=== PATIENT | female | born 1945 | race Caucasian/White ===

== ENCOUNTER 2018-12-28 08:24 | Emergency (ER) | payer MEDICARE, OTHER ==
[2018-12-28] MEDS: cloNIDine 0.1 MG Tab PO ONE (09:39)
[2018-12-28] MEDS ORDERED: Amoxicillin/Clavulanate K 875-125 MG Tab ONE (09:45)
[2018-12-28] MEDS: cloNIDine 0.1 MG Tab ONE (09:46)
--- NOTE | 2018-12-28 10:14 | EDM.PDOC ---
ED HPI GENERAL MEDICAL PROBLEM - General Chief Complaint: Bite:Animal, Insect Stated Complaint: Scratch wound, Right Hand Time Seen by Provider: 12/28/18 09:00 Source of Information: Reports: Patient History Limitations: Reports: No Limitations - History of Present Illness INITIAL COMMENTS - FREE TEXT/NARRATIVE: According to patient she was picking up her pet cat which was upset from another cat in the house. The cat bite her over the right hand and also scratched her lower lip. Happened just prior to arrival. Has small skin cuts over the right hand and wrist. Pt's last tetanus was in 2018. Pt did washed her hand and here to have it checked. No other complaints. Onset: Today Onset Date: 12/28/18 Duration: Resolved Prior to Arrival Severity: Mild Improves with: Reports: None Worsens with: Reports: None Associated Symptoms: Denies: Confusion, Chest Pain, Cough, Diaphoresis, Fever/ Chills, Headaches, Loss of Appetite, Malaise, Nausea/Vomiting, Rash, Seizure, Shortness of Breath, Syncope, Weakness - Related Data Allergies Allergy/AdvReac Type Severity Reaction Status Date / Time Dye Contrast Allergy Itching Uncoded 12/28/18 09:04 Minocin Allergy Anxiety Uncoded 12/28/18 09:04 Home Meds: Home Meds Lisinopril 10 mg PO BID 12/28/18 [History] Past Medical History HEENT History: Reports: Cataract, Other (See Below) Other HEENT History: wears eyeglasses for reading Cardiovascular History: Reports: Heart Murmur, High Cholesterol, Hypertension Respiratory History: Reports: None Gastrointestinal History: Reports: None Genitourinary History: Reports: None 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: - Past Surgical History HEENT Surgical History: Reports: None Cardiovascular Surgical History: Reports: None GI Surgical History: Reports: None Female Surgical History: Reports: None ED ROS GENERAL - Review of Systems Review Of Systems: See Below Constitutional: Denies: Fever, Chills HEENT: Denies: Rhinitis, Throat Pain, Throat Swelling Respiratory: Denies: Shortness of Breath, Wheezing, Pleuritic Chest Pain, Cough , Sputum Cardiovascular: Denies: Chest Pain, Lightheadedness GI/Abdominal: Denies: Abdominal Pain, Diarrhea, Nausea, Vomiting Skin: Reports: Bruising, Erythema, Wound Neurological: Denies: Confusion, Dizziness, Headache, Numbness, Tingling, Weakness ED EXAM, ANIMAL BITE - Physical Exam Exam: See Below Exam Limited By: No Limitations General Appearance: Alert, WD/WN, No Apparent Distress Eye Exam: Bilateral Eye: EOMI, PERRL Ears: Normal External Exam, Normal Canal, Hearing Grossly Normal, Normal TMs Nose: Normal Inspection, Normal Mucosa, No Blood Throat/Mouth: Normal Inspection, Normal Lips, Normal Teeth, Normal Gums, Normal Oropharynx, Normal Voice, No Airway Compromise Head: Atraumatic, Normocephalic Neck: Normal Inspection, Supple, Non-Tender, Full Range of Motion Respiratory/Chest: No Respiratory Distress, Lungs Clear, Normal Breath Sounds, No Accessory Muscle Use, Chest Non-Tender Cardiovascular: Normal Peripheral Pulses, Regular Rate, Rhythm, No Edema, No Gallop, No JVD, No Murmur, No Rub Extremities: Normal Inspection, Normal Range of Motion, Non-Tender, Normal Capillary Refill, No Pedal Edema Neurological: Alert, Oriented Skin Exam: Normal Color, Other (LOwer lip: there is swelling of the lower lip, but no erythema or skin or mucosal tear noted. No redness. Right hand: pt has multiple abrasions over the dorsum of the hand. All ae hemosttic. Minimal tenderness to touch. Good ROM of the hand and fingers.) Course - Vital Signs Text/Narrative:: Pt apparently has had lower lip bite, which is very superficial and scratches on her right hand for her pet cat just prior to arrival. Mos of the hand abrasions are hemostatic. The wound were cleaned and bacitracin ointment applied. Advised daily ointment application and keep the area clean.Pt is upto date on tetanus. I have empirically started her on Augmentin 875mg twice daily for 5 dys for pasteurella and Bartonella prophylaxis. Also signs and symptoms of cat scratch disease discussed with patient, Chance are low as she has been on prophylactic antibiotics. Also patient BP was 208/113mmhg, asymptomatic,pt has not taken her BP meds and also she has decreased the dose from lisinopril 20mg BID to 10mg BID. She did receive clonidine 0.1mg in the ER, advised to go home and take lisinopril 20mg BID. Advised not to change the dose without discussing with her physician. Last Recorded V/S: Last Vital Signs Temp Pulse Resp BP 208/74 H 03/31/19 09:39 Pulse Ox - Orders/Labs/Meds Labs: Laboratory Tests 12/28/18 Range/Units 09:03 WBC 6.0 (4.0-11.0) K/uL RBC 4.23 (3.80-5.80) M/uL Hgb 13.0 (11.5-16.5) g/dL Hct 39.5 (37.0-47.0) % MCV 93 (76-96) fL MCH 30.7 (27.0-32.0) pg MCHC 32.9 (31.0-35.0) g/dL RDW 13.6 (11.0-16.0) % Plt Count 208 (150-500) K/uL MPV 9.7 (6.0-10.0) fL Neut % (Auto) 57.1 (45.0-70.0) % Lymph % (Auto) 32.9 (20.0-40.0) % [place] % (Auto) 8.2 (3.0-10.0) % Eos % (Auto) 1.5 (1.0-5.0) % Baso % (Auto) 0.3 (0.0-0.5) % Neut # (Auto) 3.40 (2.00-7.50) K/uL Lymph # (Auto) 1.96 (1.50-4.00) K/uL [place] # (Auto) 0.49 (0.20-0.80) K/uL Eos # (Auto) 0.09 (0.04-0.40) K/uL Baso # (Auto) 0.02 (0.02-0.10) K/uL Meds: Medications Discontinued Medications Generic Name Dose Route Start Last Admin Trade Name Freq PRN Reason Stop Dose Admin Clonidine HCl 0.1 mg 12/28/18 09:35 12/28/18 09:39 Catapres PO 12/28/18 09:36 0.1 mg ONETIME ONE Administration Clonidine HCl Confirm 12/28/18 09:46 Catapres Administered 12/28/18 09:47 Dose 0.1 mg .ROUTE .STK-MED ONE Departure - Departure Time of Disposition: 10:15 Disposition: Home, Self-Care 01 Clinical Impression: Cat scratch of hand - Discharge Information *PRESCRIPTION DRUG MONITORING PROGRAM REVIEWED*: Not Applicable *COPY OF PRESCRIPTION DRUG MONITORING REPORT IN PATIENT CARROLL: Not Applicable Instructions: Animal Bite, [id number] Referrals: PCP,None [Primary Care Provider] - Forms: ED Department Discharge Additional Instructions: - Take Augmentin 875 mg/125 mg, one tablet 2 times a day for 5 days, as a prophylaxis. - Watch for any fever, swelling of nodes developing at the neck, and pain. - If those symptoms above develops, come to the clinic and see a provider for further treatment. - Continue taking your home medication. Take Lisinopril 10 mg 2 times daily.Monitor you BP at home. - Problem List & Annotations (1) Cat scratch of hand SNOMED Code(s): 357612633 Code(s): S60.519A - ABRASION OF UNSPECIFIED HAND, INITIAL ENCOUNTER; W55.03XA - SCRATCHED BY CAT, INITIAL ENCOUNTER Status: Acute Current Visit: Yes - Problem List Review Problem List Initiated/Reviewed/Updated: Yes - Assessment/Plan Assessment:: cat scratch on right hand CAt bite superficial over the lower lip Plan: Pt apparently has had lower lip bite, which is very superficial and scratches on her right hand for her pet cat just prior to arrival. Mos of the hand abrasions are hemostatic. The wound were cleaned and bacitracin ointment applied. Advised daily ointment application and keep the area clean.Pt is upto date on tetanus. I have empirically started her on Augmentin 875mg twice daily for 5 dys for pasteurella and Bartonella prophylaxis. Also signs and symptoms of cat scratch disease discussed with patient, Chance are low as she has been on prophylactic antibiotics. Also patient BP was 208/113mmhg, asymptomatic,pt has not taken her BP meds and also she has decreased the dose from lisinopril 20mg BID to 10mg BID. She did receive clonidine 0.1mg in the ER, advised to go home and take lisinopril 20mg BID. Advised not to change the dose without discussing with her physician.
== END 2018-12-28 09:55 | disposition home or self-care (01) ==
LOC: LB.ED 08:24
DX: S00.571A Other superficial bite of lip, initial encounter (principal); S60.511A Abrasion of right hand, initial encounter; I10 Essential (primary) hypertension; Z79.899 Other long term (current) drug therapy; Z88.8 Allergy status to other drugs, medicaments and biological substances; Z91.041 Radiographic dye allergy status; W55.01XA Bitten by cat, initial encounter
CPT/HCPCS: 36415; 85025; 99282; A9270-GY

== ENCOUNTER 2021-08-23 23:35 | Emergency (ER) | payer MEDICARE ==
[2021-08-23] MEDS ORDERED: Ondansetron 4 MG Tab.DIS ONE (23:45)
[2021-08-24] MEDS: Sodium Chloride 0.9% 1,000 ML IV SCH (00:02)
--- NOTE | 2021-08-24 00:32 | EDM.PDOC ---
ED HPI GENERAL MEDICAL PROBLEM - General Chief Complaint: Drug or Alcohol Abuse Stated Complaint: TYLENOL OVERDOSE Time Seen by Provider: 08/24/21 00:00 - History of Present Illness INITIAL COMMENTS - FREE TEXT/NARRATIVE: Pt comes in with her daughter with C/O not feeling well. She accidentally has been taking too much Tylenol. Taking 17 tabs a day for 1 week. She thought they were 100 mg tabs so she took 5- 500 mg tabs TID. This evening she started to feel GI upset and not feel well. Thats when her daughter realized what was happening and brought her in. 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 Left Jaw Pain Score (Numeric/FACES): 2 - Related Data Allergies Allergy/AdvReac Type Severity Reaction Status Date / Time Dye Contrast Allergy Itching Uncoded 08/24/21 00:10 Minocin Allergy Anxiety Uncoded 08/24/21 00:10 Home Meds: Home Meds Lisinopril 10 mg PO BID 12/28/18 [History] amLODIPine Besylate [Norvasc] 5 mg PO DAILY 08/24/21 [History] Past Medical History HEENT History: Reports: Cataract, Other (See Below) Other HEENT History: wears eyeglasses for reading Cardiovascular History: Reports: Heart Murmur, High Cholesterol, Hypertension Respiratory History: Reports: None Gastrointestinal History: Reports: None Genitourinary History: Reports: None 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: Neurological History: Reports: None Endocrine/Metabolic History: Reports: None Hematologic History: Reports: None Dermatologic History: Reports: Other (See Below) Other 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, lateral side - Infectious Disease History Infectious Disease History: Reports: Chicken Pox, Measles, Mumps - Past Surgical History HEENT Surgical History: Reports: None Cardiovascular Surgical History: Reports: None GI Surgical History: Reports: None Female Surgical History: Reports: None Musculoskeletal Surgical History: Reports: None Dermatological Surgical History: Reports: Other (See Below) Social & Family History - Family History Oncologic: Reports: Breast - Caffeine Use Caffeine Use: Reports: None - Recreational Drug Use Recreational Drug Use: No ED ROS GENERAL - Review of Systems Review Of Systems: Comprehensive ROS is negative, except as noted in HPI. GI/Abdominal: Reports: Abdominal Pain, Nausea ED EXAM, GENERAL - Physical Exam Exam: See Below General Appearance: Other (Pt is awake and alert. In no respiratory distress. She is smiling and talkative.) Course - Vital Signs Last Recorded V/S: Last Vital Signs Temp 97 F 08/24/21 00:26 Pulse 60 08/24/21 00:26 Resp 20 08/24/21 00:26 BP 158/62 H 08/24/21 00:26 Pulse Ox 97 08/24/21 00:26 - Orders/Labs/Meds Orders: Active Orders 24 hr Category Date Time Status Sodium Chloride 0.9% [Normal Saline] 1,000 ml Med 08/23/21 23:45 Active IV ASDIRECTED Medication Orders Sodium Chloride (Normal Saline) 1,000 mls @ 500 mls/hr IV ASDIRECTED LAURENCE Last Admin: 08/24/21 00:02 Dose: 500 mls/hr Documented by: CRISTIAN Labs: Laboratory Tests 08/24/21 08/24/21 08/24/21 Range/Units 00:10 00:10 00:10 WBC 7.9 D (4.0-11.0) K/uL RBC 4.26 (3.80-5.80) M/uL Hgb 13.2 (11.5-16.5) g/dL Hct 40.0 (37.0-47.0) % MCV 94 (76-96) fL MCH 31.0 (27.0-32.0) pg MCHC 33.0 (31.0-35.0) g/dL RDW 13.8 (11.0-16.0) % Plt Count 261 D (150-500) K/uL MPV 9.7 (6.0-10.0) fL Neut % (Auto) 53.8 (45.0-70.0) % Lymph % (Auto) 36.0 (20.0-40.0) % [place] % (Auto) 8.5 (3.0-10.0) % Eos % (Auto) 1.4 (1.0-5.0) % Baso % (Auto) 0.3 (0.0-0.5) % Neut # (Auto) 4.25 (2.00-7.50) K/uL Lymph # (Auto) 2.84 (1.50-4.00) K/uL [place] # (Auto) 0.67 (0.20-0.80) K/uL Eos # (Auto) 0.11 (0.04-0.40) K/uL Baso # (Auto) 0.02 (0.02-0.10) K/uL PT (9.0-11.5) sec INR (1.0-3.5) Sodium 140 (136-145) mmol/L Potassium 3.8 (3.5-5.1) mmol/L Chloride 104 (98-107) mmol/L Carbon Dioxide 28.0 (21.0-32.0) mmol/L Anion Gap 11.8 (5.0-15.0) mmol/L BUN 19 (8-26) mg/dL Creatinine 0.96 (0.55-1.02) mg/dL Est Cr Clr Drug Dosing 40.60 mL/min Estimated GFR (MDRD) 56 L (>60) MLS/MIN BUN/Creatinine Ratio 19.8 (6-25) Glucose 147 H (74-100) mg/dL Calcium 9.0 (8.5-10.1) mg/dL Total Bilirubin 0.2 (0.0-1.0) mg/dL AST 35 (15-37) U/L ALT 90 H (12-78) U/L Alkaline Phosphatase 79 (46-116) U/L Total Protein 7.1 (6.4-8.2) g/dL Albumin 3.7 (3.4-5.0) g/dL Globulin 3.4 (2.2-4.2) g/dL Albumin/Globulin Ratio 1.1 (0.8-2.0) Acetaminophen 5.0 ug/mL 08/24/21 Range/Units 00:10 WBC (4.0-11.0) K/uL RBC (3.80-5.80) M/uL Hgb (11.5-16.5) g/dL Hct (37.0-47.0) % MCV (76-96) fL MCH (27.0-32.0) pg MCHC (31.0-35.0) g/dL RDW (11.0-16.0) % Plt Count (150-500) K/uL MPV (6.0-10.0) fL Neut % (Auto) (45.0-70.0) % Lymph % (Auto) (20.0-40.0) % [place] % (Auto) (3.0-10.0) % Eos % (Auto) (1.0-5.0) % Baso % (Auto) (0.0-0.5) % Neut # (Auto) (2.00-7.50) K/uL Lymph # (Auto) (1.50-4.00) K/uL [place] # (Auto) (0.20-0.80) K/uL Eos # (Auto) (0.04-0.40) K/uL Baso # (Auto) (0.02-0.10) K/uL PT 9.5 (9.0-11.5) sec INR 1.0 (1.0-3.5) Sodium (136-145) mmol/L Potassium (3.5-5.1) mmol/L Chloride (98-107) mmol/L Carbon Dioxide (21.0-32.0) mmol/L Anion Gap (5.0-15.0) mmol/L BUN (8-26) mg/dL Creatinine (0.55-1.02) mg/dL Est Cr Clr Drug Dosing mL/min Estimated GFR (MDRD) (>60) MLS/MIN BUN/Creatinine Ratio (6-25) Glucose (74-100) mg/dL Calcium (8.5-10.1) mg/dL Total Bilirubin (0.0-1.0) mg/dL AST (15-37) U/L ALT (12-78) U/L Alkaline Phosphatase (46-116) U/L Total Protein (6.4-8.2) g/dL Albumin (3.4-5.0) g/dL Globulin (2.2-4.2) g/dL Albumin/Globulin Ratio (0.8-2.0) Acetaminophen ug/mL Meds: Medications Generic Name Dose Route Start Last Admin Trade Name Freq PRN Reason Stop Dose Admin Sodium Chloride 1,000 mls @ 500 mls/hr 08/23/21 23:45 08/24/21 00:02 Normal Saline IV 500 mls/hr ASDIRECTED LAURENCE Administration - Re-Assessments/Exams Free Text/Narrative Re-Assessment/Exam: 08/24/21 00:32 Poison control was contacted right away. Lab results show a Tylenol level of 5. ALT is 90. Pt did get IV fluids paula 400 ml. She will be discharged home. Zofran to be used prn. Do not take any Tylenol for awhile, until her PCP tells her she can. 08/24/21 00:50 Departure - Departure Time of Disposition: 00:55 Disposition: Home, Self-Care 01 Condition: Good Clinical Impression: Tylenol overdose Qualifiers: Encounter type: initial encounter Injury intent: accidental or unintentional Qualified Code(s): T39.1X1A - Poisoning by 4-Aminophenol derivatives, accidental (unintentional), initial encounter - Discharge Information *PRESCRIPTION DRUG MONITORING PROGRAM REVIEWED*: Yes *COPY OF PRESCRIPTION DRUG MONITORING REPORT IN PATIENT CARROLL: Yes Instructions: Acetaminophen Overdose Forms: ED Department Discharge Care Plan Goals: Take Zofran one tab every 6 hrs as needed for nausea Sepsis Event Note (ED) - Evaluation Sepsis Screening Result: No Definite Risk - Focused Exam Vital Signs: Vital Signs Temp Pulse Resp BP Pulse Ox 08/24/21 00:26 97 F 60 20 158/62 H 97 08/24/21 00:04 96.9 F 64 18 146/59 H 97 08/24/21 00:01 63 18 146/59 H 98 08/23/21 23:59 96.5 F L 71 20 187/77 H 98 - My Orders Last 24 Hours: My Active Orders 08/23/21 23:45 Sodium Chloride 0.9% [Normal Saline] 1,000 ml IV ASDIRECTED - Assessment/Plan Last 24 Hours: My Active Orders 08/23/21 23:45 Sodium Chloride 0.9% [Normal Saline] 1,000 ml IV ASDIRECTED
== END 2021-08-24 00:57 | disposition home or self-care (01) ==
LOC: LB.ED 23:35
DX: T39.1X1A Poisoning by 4-Aminophenol derivatives, accidental (unintentional), initial encounter (principal); E78.00 Pure hypercholesterolemia, unspecified; I10 Essential (primary) hypertension; Z91.041 Radiographic dye allergy status; Z88.1 Allergy status to other antibiotic agents; Z79.899 Other long term (current) drug therapy
CPT/HCPCS: 36415; 80053; 80143; 85025; 85610; 99284; J7030; A9270-GY

== ENCOUNTER 2022-11-09 17:18 | Observation (INO) | payer MEDICARE ==
[2022-11-09] MEDS ORDERED: Sodium Chloride 0.9% 10 ML Syringe FLUSH PRN (17:39)
[2022-11-09] MEDS ORDERED: Acetaminophen 325 MG Tab PO ONE (18:33)
[2022-11-09 18:43] LABS: ESTIMATED GFR 59 mL/min (>60); TROPONIN I HIGH SENSITIVITY 4.9 pg/ml (<=60.4)
[2022-11-09] MEDS ORDERED: Sodium Chloride 0.9% 1,000 ML IV SCH (18:45)
[2022-11-09] MEDS ORDERED: Acetaminophen 500 MG Tab ONE (19:05)
[2022-11-09] MEDS ORDERED: Acetaminophen 325 MG Tab ONE (19:07)
[2022-11-09] MEDS ORDERED: diphenhydrAMINE 50 MG/ML SDV IVPUSH ONE (19:10)
[2022-11-09] MEDS ORDERED: methylPREDNISolone Sodium Succinate 125 MG/2 ML SDV IVPUSH ONE (19:10)
[2022-11-09] MEDS ORDERED: methylPREDNISolone Sodium Succinate 125 MG/2 ML SDV ONE (19:29)
[2022-11-09] MEDS ORDERED: diphenhydrAMINE 50 MG/ML SDV ONE (19:30)
[2022-11-09] MEDS ORDERED: Aspirin 81 MG Tab.Chew PO ONE (20:21)
[2022-11-09] MEDS ORDERED: Lisinopril 10 MG Tab PO ONE (21:30)
== END 2022-11-10 07:02 | disposition left against medical advice (07) ==
LOC: LB.ED 17:18 → LB.MS 21:30 → UNDOADMOB 21:40 → LB.MS 21:40 → UNDODISOB 11-10 07:02
PROVIDERS: ADMIT Surgery; ATTEND Surgery
DX: I10 Essential (primary) hypertension (principal); E83.42 Hypomagnesemia; G45.9 Transient cerebral ischemic attack, unspecified; R47.81 Slurred speech; E78.00 Pure hypercholesterolemia, unspecified; Z79.899 Other long term (current) drug therapy; Z88.1 Allergy status to other antibiotic agents
CPT/HCPCS: 36415; 70450; 70496; 70498; 80048; 83735; 84100; 84484; 85027; 93005; 93010; 96365; 96375; 99222; 99238; 99285; 99285-25; A9270-GY; G0378; J1200; J2930; J3475; J7030